=== PATIENT | female | born 1990 | race Caucasian/White ===

== ENCOUNTER 2016-10-17 09:59 | Inpatient (IN) ==
[~2016-10-17 09:59] MED LIST: miSOPROStol 100 MCG TABLET PO ONE
[2016-10-17] MEDS ORDERED: miSOPROStol 25 MCG TABLET PO ONE (10:08)
[2016-10-17] MEDS ORDERED: Famotidine 20 MG/2 ML VIAL IVP PRN (10:08)
[2016-10-17] MEDS ORDERED: *HR* Nalbuphine 20 MG/ML AMPUL IVP PRN ×2 (10:09→15:47)
[2016-10-17 10:58] LABS: Basophils % 0.1 %; Eosinophils % 0.3 %; Hematocrit 33.9 % (35.3-44.9); Hemoglobin 11.5 g/dL (11.5-15.4); Immature Granulocytes % 0.5 % (0-4); Lymphocytes # 0.9 K/mcL (0.6-4.6); Lymphocytes % 11.7 %; Mean Corpuscular HGB Conc 33.9 g/dL (31.6-35.5); Mean Corpuscular Hemoglobin 32.1 pg (28.0-33.3); Mean Corpuscular Volume 94.7 fL (83.0-100.0); Mean Platelet Volume 9.3 fL (9.4-12.4); Monocytes # 0.7 K/mcL (0.0-1.3); Neutrophils # 5.7 K/mcL (1.6-8.9); Platelet Count 133 K/mcL (140-400); Red Blood Count 3.58 M/mcL (3.82-4.97); Red Cell Distribution Width 14.1 % (11.5-14.5); Segmented Neutrophils % 78.4 %
[2016-10-17] MEDS: Ringers Solution, Lactated 1,000 ML IVC SCH ×2 (11:13→16:40)
--- NOTE | 2016-10-17 12:33 | Anesthesia Evaluation PreOp ---
Date of Encounter: 10/17/16 Time of Encounter: 12:31 - Past History Planned Operation: uriel Cardiac History: Denies any Significant Hx Pulmonary History: Denies Any Significant HX WEAVER TIRE CORD History: Denies Any Significant HX Other Medical History: GERD Anesthesia History: No Prior Anesthetic Complications, Past Anesthesia (t&a), Problems (none) : Yes Test: Positive Alcohol Use: none Drug use: none Medications and Allergies Vit/FA 1 / PO DAILY 03/28/15 [History] Allergies No Known Allergies Allergy (Verified 10/17/16 10:25) - Meds/Allergy Pre-op Review Medications Reviewed: Yes Allergies Reviewed: Yes Beta Blockers on Current Med List: No Anesthesia Results - Labs 10/17/16 10:49 Anesthesia Exam 132/80 77 fht 143 Height: 5'3" Weight: 91 kg NPO (# of Hours): 7 Pain Scale: 2 Pain Scale Used: Numeric (1 - 10) - HEENT Pupil (Motor): Pupils equal Mallampati: II Teeth: Normal Oral Opening: Greater than 3 - WEAVER TIRE CORD LOC: Oriented WEAVER TIRE CORD Motor: Normal RUE, Normal LUE, Normal RLE, Normal LLE, Normal Face WEAVER TIRE CORD Sensory: Normal: RUE, LUE, RLE, LLE, Face - Cardiac Rhythm: Regular Murmur: None - Pulmonary Breath Sounds: bilateral Clear Respiratory Effort: Symmetrical Anesthesia Assess/Plan ASA Score: 2 Modified Vance Scale for Level of Consciousness: Cooperative, oriented, and tranquil Anesthetic Plan: Regional Autologous Blood: No Monitoring Plan: Standard Monitors Recovery Plan: Other (risks discussed, questions answered, consented)
--- NOTE | 2016-10-17 13:41 | OB/GYN History & Physical ---
Date of Encounter: 10/17/16 Time of Encounter: 13:38 Assessment and Plan (1) Rubella non-immune status, antepartum Current visit: Yes Status: Acute (2) 40 weeks gestation of Current visit: No Status: Acute Admit for IOL. Cytotec PO. GBS negative. AROM performed at this time for moderate amount clear fluid. Epidural when requested. Will augment with pitocin if needed. Anticipate . (3) Elective induction of labor planned Current visit: No Status: Acute History of Present Illness Chief complaint: IOL HPI: Ms. Quinones is a 26 year old female presenting for IOL at 40w2d. This has been uncomplicated. Pt denies complaints today. Good FM. Bloo dtype O positive. Rubella non-immune. Serologies and GBS negative. Past Med Surg Social Fam HX - Past Medical History Medical history: no medical history Psychiatric history: no psych history - Past Surgical History Surgical History: other - Social History Smoking Status: Never smoker Smokeless Tobacco Status: No Alcohol use: none Drug use: none - Family History Mother Family Member Ethnicity: Non- Living Status: Still Living Hx Family Cardiac Disorders: No Hx Family Respiratory Disorders: No Hx Family Cancer: No Hx Family GI Disorders: No Hx Family Endocrine Disorder: No Hx Family Neuromuscular Disorders: No Hx Family Neurologic Disorders: No Hx Family HEENT Disorders: No Hx Family Autoimmune Disorders: No Father Adopted: No Living Status: Still Living Hx Family Endocrine Disorder: Yes (diabetes) Obstetrical History - Pregnancies : 3 Para: 2 Term: 0 : 0 Ab's: 0 Livin - History/Complications History/Complications: Pt had a hematoma following her first delivery that required surgical intervention Medications and Allergies Vit/FA 1 / PO DAILY 03/28/15 [History] Allergies No Known Allergies Allergy (Verified 10/17/16 10:25) Review of System OB All systems PM: reviewed and no additional remarkable complaints except as stated Exam - Constitutional Constitutional: well developed, well nourished, no acute distress - HEENT HEENT: Mucus Membranes Moist - Lungs Respiratory exam: CTAB - Cardiovascular Cardiovascular exam: RRR, +S1, +S2 - Abdomen Abdomen: Present: gravid, non tender - Extremities Extremities exam: normal inspection - Vulva Vulva: bilateral: normal - Vagina Vagina: Present: normal moisture - Cervix Dilation: 4 Effacement: 80 Station: -1 - Anus/Rectum Anus/Rectum: Present: normal perianal skin Results Result Diagrams: 10/17/16 10:49 Abnormal lab results RBC 3.58 M/mcL (3.82-4.97) L 10/17/16 10:49 Hct 33.9 % (35.3-44.9) L 10/17/16 10:49 Plt Count 133 K/mcL (140-400) L 10/17/16 10:49 MPV 9.3 fL (9.4-12.4) L 10/17/16 10:49 All other labs normal. - VTE Reasons for not Prescribing Prophylaxis: Treatment not Indicated - Low risk for VTE
[2016-10-17] MEDS ORDERED: *HR* Nalbuphine 20 MG/ML AMPUL ONE (15:47)
[2016-10-17] MEDS ORDERED: 0.9 % Sodium Chloride 1,000 ML ONE (16:34)
--- NOTE | 2016-10-17 16:43 | OB Labor Progress Note ---
Date of Encounter: 10/17/16 Time of Encounter: 16:41 Labor Progress Note - Subjective Subjective: Pt with significant discomfort with contractions. She declines an epidural at this time. - Cervix Cervix: 7/100/-1 - Heart Tones Heart Tones: Category II- variable decelerations with minimal to moderate variability noted. Pt repositioned. O2 on via facemask. LR bolusing in IV. Amnioinfusion ordered. Dr. Payne aware and has viewed tracing. Will continue to monitor closely. - [place] Pr[place]: irregular - Interventions Interventions: Position changes, O2, LR bolus, amnioinfusion ordered. - Plan Plan: Continue to monitor. Anticipate delivery soon.
[2016-10-17] MEDS ORDERED: Terbutaline 1 MG/ML VIAL SQ ONE (16:52)
[2016-10-17] MEDS ORDERED: Oxytocin 20 units/ LR 1000 mL 20 UNIT/1,000 ML BAG IVC ONE ×3 (17:01→18:16)
[2016-10-17] MEDS ORDERED: Acetaminophen 325 MG TABLET PO PRN ×2 (18:44→20:19)
--- NOTE | 2016-10-17 18:51 | OB/GYN Procedure Note ---
Delivery - Delivery Date: 10/17/16 Provider: Get Payne Intrapartum events: none Delivery induction: AROM, misoprostol Estimated Blood Loss: 600 - Infant (s) Infant A Delivery Date: 10/17/16 Delivery Time: 17:02 Presentation: vertex Position: FADI Gender: Male Viability: Viable Weight Gram: 3.365 kg at 1 minute: 8 at 5 mins: 8 Shoulder Dystocia: not encountered Specimens collected: cord blood Cord: 3 umbilical vessels, delivered through nuchal - Repair Episiotomy: none Laceration Description: None - Complications Delivery complications: hemorrhage - Disposition Mom disposition: stable in LDR disposition: stable in LDR - Comments Comments: Patient status postnormal sponges for delivery of liveborn male from left aspect anterior presentation. There was a loose nuchal cord 1 was delivered through. Made spontaneous delivery of normal placenta with three- vessel cord. There is no lacerations. Uterus was massaged until it was firm and there was minimal bleeding. Several minutes after delivery was called back to labor and delivery for brisk bleeding. Patient did bleed approximately 600 mL of bright red blood with clot. Uterine massage was performed and inspected uterine cavity and found large amount of clot but no evidence of placental tissue. Patient was given 100 g of Cytotec and uterus did firm up and bleeding was minimized. There were no patient was also continues to proceed with Pitocin bolus through this time.. Total EBL was Proxima 600 mL patient was asymptomatic remained normotensive and not tachycardic. She and baby did recover on labor and delivery.
[2016-10-17] MEDS ORDERED: Oxytocin 20 units/ LR 1000 mL 20 UNIT/1,000 ML BAG IVC SCH (20:19)
[2016-10-17] MEDS ORDERED: *HR* HYDROcodone/Acet 5/325 mg TABLET PO PRN (20:19)
[2016-10-17] MEDS ORDERED: Measles/Mumps/Rubella Vacc 0.5 ML VIAL SQ PRN (20:19)
[2016-10-17] MEDS ORDERED: Ibuprofen 600 MG TABLET PO PRN (20:19)
[2016-10-18 06:00] LABS: Basophils % 0.2 %; Eosinophils % 0.3 %; Hematocrit 28.5 % (35.3-44.9); Immature Granulocytes % 0.5 % (0-4); Lymphocytes # 1.2 K/mcL (0.6-4.6); Lymphocytes % 12.9 %; Mean Corpuscular Hemoglobin 32.1 pg (28.0-33.3); Mean Corpuscular Volume 94.4 fL (83.0-100.0); Mean Platelet Volume 9.2 fL (9.4-12.4); Monocytes % 10.9 %; Neutrophils # 6.9 K/mcL (1.6-8.9); Platelet Count 135 K/mcL (140-400); Red Blood Count 3.02 M/mcL (3.82-4.97); Red Cell Distribution Width 14.4 % (11.5-14.5); Segmented Neutrophils % 75.2 %
[2016-10-18 06:02] LABS: Hemoglobin 9.7 g/dL (11.5-15.4)
--- NOTE | 2016-10-18 08:28 | Discharge Summary ---
Date of Encounter: 10/18/16 Time of Encounter: 08:22 - Discharge Diagnosis (1) anemia Priority: Secondary Status: Acute Comments: Continue ferrous sulfate daily (2) Status post vaginal delivery Priority: Primary Status: Acute Comments: Continue routine care discharge home today follow up in 4-[address] Payne (3) Breast feeding status of mother Priority: Secondary Status: Acute Comments: support prn - Discharge Medications Prescriptions: Ibuprofen [Motrin] 600 mg PO Q6HR PRN #60 tablet PRN Reason: Cramping Docusate [Colace] 100 mg PO BID #60 capsule Ferrous Sulfate 325 mg PO DAILY #30 tablet Home Medications: Vit/FA 1 / PO DAILY 03/28/15 [History] Docusate [Colace] 100 mg PO BID #60 capsule 10/18/16 [Rx] Ferrous Sulfate 325 mg PO DAILY #30 tablet 10/18/16 [Rx] Ibuprofen [Motrin] 600 mg PO Q6HR PRN #60 tablet 10/18/16 [Rx] Vit/FA 1 each PO DAILY tablet 10/18/16 [Rx] Allergies/Adverse Reactions: Allergies No Known Allergies Allergy (Verified 10/17/16 10:25) Data Procedures and tests throughout hospitalization: Laboratory Tests 10/17/16 10/18/16 10:49 05:42 WBC 7.3 9.2 RBC 3.58 L 3.02 L Hgb 11.5 9.7 L D Hct 33.9 L 28.5 L MCV 94.7 94.4 MCH 32.1 32.1 MCHC 33.9 34.0 RDW 14.1 14.4 Plt Count 133 L 135 L MPV 9.3 L 9.2 L Immature Gran % 0.5 0.5 Seg Neutrophils % 78.4 75.2 Lymphocytes % 11.7 12.9 Monocytes % 9.0 10.9 Eosinophils % 0.3 0.3 Basophils % 0.1 0.2 Neutrophils # 5.7 6.9 Lymphocytes # 0.9 1.2 Monocytes # 0.7 1.0 Eosinophils # 0.0 0.0 Basophils # 0.0 0.0 Labs on day of discharge: Labs from last 24 hours 10/18/16 10/17/16 05:42 10:49 WBC 9.2 7.3 RBC 3.02 L 3.58 L Hgb 9.7 L D 11.5 Hct 28.5 L 33.9 L MCV 94.4 94.7 MCH 32.1 32.1 MCHC 34.0 33.9 RDW 14.4 14.1 Plt Count 135 L 133 L MPV 9.2 L 9.3 L Immature Gran % 0.5 0.5 Seg Neutrophils % 75.2 78.4 Lymphocytes % 12.9 11.7 Monocytes % 10.9 9.0 Eosinophils % 0.3 0.3 Basophils % 0.2 0.1 Neutrophils # 6.9 5.7 Lymphocytes # 1.2 0.9 Monocytes # 1.0 0.7 Eosinophils # 0.0 0.0 Basophils # 0.0 0.0 Date of admission: 10/17/16 09:59 Primary care physician: Lalo Contreras DO Consults: 10/17/16 20:19 Consult to Classroom Aide [CONS] Routine Comment: Vaginal delivery, consult needed Discharging clinician: Indu Coreas Anticipated date of discharge: 10/18/16 - Patient Status Disposition: Home, Self-Care Condition: Good Functional capacity at discharge: independent ambulation - Discharge Instructions Follow Up With: Lalo Contreras DO [Primary Care Provider] - Get Payne MD [Partnered Physician] - - Diet and Activity Activity: increase activity as tolerated Diet: regular diet Hospital Course Reason for admission: induction of labor Delivery: Episiotomy: none Laceration: none Other procedures: none Discharge diagnosis: IUP at term delivered [place] baby: male (breast feeding) Time Attestation: Total time spent providing and/or coordinating discharge services: Exam - Constitutional Vitals: Temp Pulse Resp BP Pulse Ox 98.3 F 83 16 102/68 96 10/18/16 03:33 10/18/16 03:33 10/18/16 03:51 10/18/16 03:33 10/18/16 03:33 General appearance IM: A&O X 3, pleasant, answers questions appropriately - Respiratory Respiratory exam: Present: CTAB - Cardiovascular Cardiovascular exam IM: Present: RRR, +S1, +S2 - GI/Abdominal GI/Abdominal exam IM: normal bowel sounds - Uterine Tone: Firm Uterus Position: 2 Fingers Below Umbilicus, Midline - Extremities Exam Extremities exam IM: Present: calf tenderness, full ROM, normal inspection - Neurological Exam Neurological exam: alert, oriented X3, reflexes normal
[2016-10-18] MEDS ORDERED: Prenatal Vit/FA 1 EACH TABLET PO SCH (09:00)
[2016-10-18 16:54] VITALS: BP 123/77
== END 2016-10-18 18:36 | disposition home or self-care (01) | DRG 774 ==
LOC: 1NENULAB 09:59 → 1NENUOBS 19:46
PROVIDERS: ADMIT Obstetrics & Gynecology; ATTEND Obstetrics & Gynecology